=== PATIENT | female | born 1995 | race Caucasian/White ===

== ENCOUNTER 2024-09-19 22:25 | Emergency (ER) | payer OTHER ==
[2024-09-19] MEDS: Ketorolac 30 MG/ML SDV IM ONE (23:26)
[2024-09-19] MEDS: Acetaminophen 500 MG Tab PO ONE (23:27)
[2024-09-19] MEDS: Lidocaine 2% Viscous Solution 15 ML UD PO ONE (23:27)
[2024-09-19] MEDS: Benzocaine 20% Topical Spray UD MUCMEM ONE (23:27)
== END 2024-09-19 23:47 | disposition home or self-care (01) ==
LOC: MW.ED 22:25
DX: K02.9 Dental caries, unspecified (principal); R03.0 Elevated blood-pressure reading, without diagnosis of hypertension; Z88.0 Allergy status to penicillin; Z88.1 Allergy status to other antibiotic agents; Z88.2 Allergy status to sulfonamides; Z88.8 Allergy status to other drugs, medicaments and biological substances; Z79.899 Other long term (current) drug therapy
CPT/HCPCS: 96372; 99283; A9270; J1885